=== PATIENT | female | born 1955 | race Caucasian/White ===

== ENCOUNTER 2022-05-21 00:58 | Day surgery (SDC) | payer MEDICARE, SELFPAY ==
[2022-05-13 12:50] VITALS: BMI 42.5
[2022-05-21 10:24] VITALS: BP 129/59; PULSE 83; RESP 18; TEMP 36; O2SAT 98
[2022-05-21] MEDS: LACTATED RINGERS 1,000 ML 150 ML IV CONT (10:27)
--- NOTE | 2022-05-21 10:33 | WPDANESEPPF ---
Anes - Initial Pre Proc Eval Procedure: Operation Date: 05/21/22 12:30 Proposed Procedures p Colonoscopy - Jose G Galaviz MD Date/Time: 05/21/22 10:33 Surgeon: Jose G Galaviz MD Pre Op Diagnosis: other fecal abnormalities Patient Data Age: 67 Gender: F Height: 1.6 m Weight: 114.8 kg Last Vital Signs Temp 96.8 F L 05/21/22 10:24 Pulse 83 05/21/22 10:24 Resp 18 05/21/22 10:24 BP 129/59 L 05/21/22 10:24 Pulse Ox 98 05/21/22 10:24 O2 Del Method Room Air 05/21/22 10:24 Allergies Allergy/AdvReac Type Severity Reaction Status Date / Time codeine Allergy Intermediate Dyspnea / Verified 05/21/22 10:23 SOB Home Medications Medication Instructions Recorded Confirmed Type albuterol sulfate 90 mcg/actuation 1 inh inhalation Q4H PRN shortness 02/04/21 05/21/22 Rx aerosol inhaler (ProAir HFA) of breath or wheezing #6.7 grams triamcinolone acetonide 0.1 % 1 applic topical TID #30 grams 01/23/22 05/21/22 Rx topical cream clonazepam 0.5 mg tablet 0.5 mg PO DAILY PRN anxiety #30 02/04/22 05/21/22 Rx tabs atenolol 50 mg-chlorthalidone 25 1 tablet PO DAILY #30 tabs 04/25/22 05/21/22 Rx mg tablet (Tenoretic) levothyroxine 25 mcg tablet 25 mcg PO DAILY #30 tabs 04/25/22 05/21/22 Rx lisinopril 20 mg tablet 20 mg PO DAILY #30 tabs 04/25/22 05/21/22 Rx rosuvastatin 20 mg tablet (Crestor) 20 mg PO DAILY #30 tabs 04/25/22 05/21/22 Rx Patient hx anesthesia problems: none Family hx anesthesia problems: none Results Review: All pre-operative results and documents have been reviewed as part of the pre-operative evaluation. [facility] Past Medical History Medical History BMI 40.0-44.9, adult BMI 45.0-49.9, adult Family History Family History Father Hypertension Diabetes mellitus Mother Hypertension Rheumatoid arthritis Lung cancer Sibling Diabetes mellitus Hypertension Other Cerebrovascular accident Family history of coronary artery disease Family history of malignant neoplasm Family history of rheumatoid arthritis Social History Social History Smoking packs per day: 1.5 Smoking cigarettes per day: 30.0 Smoking status: Former smoker Tobacco type: cigarettes Second hand tobacco smoke exposure: Yes Smoking end date: 10/10/17 Alcohol intake: never Substance use: never Substance use type: does not use Living arrangements: with family Occupation/Education: retired 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 Informed Consent: The patient's anesthetic plan and its attendant risks and benefits were discussed with the patient/family/POA. Questions were solicited and answers provided to the satisfaction of the patient/family/POA.
--- NOTE | 2022-05-21 11:02 | PM.HPGS ---
History of Present Illness History of Present Illness Consent: Risks, benefits, and alternatives have been discussed and questions answered. Patient agrees to proceed with procedure. Chief complaint: other fecal abnormalities Narrative: Carie Temple is a 67 year old female with positive cologuard, never had colonoscopy Review of Systems Constitutional: Constitutional: Denies headache(s) and Denies weakness Eyes: Eyes: Denies blurry vision ENT: Reports Normal hearing present, Denies headache(s) and Denies neck pain Cardiovascular: Cardiovascular: Denies chest pain and Denies dyspnea Respiratory: Respiratory: Denies dyspnea Gastrointestinal: Gastrointestinal: Reports no additional gastrointestinal complaints Genitourinary: Genitourinary: Denies dysuria Musculoskeletal: Musculoskeletal: Denies neck pain Integumentary/Breasts: Skin/Breast: Denies dry skin Neurologic: Reports Normal hearing present, Denies headache(s) and Denies weakness Psychiatric: Psychiatric: Denies anxiety Endocrine: Endocrine: Denies change in body appearance Hematologic/Lymphatic: Hematologic/Lymphatic: Denies easy bleeding Allergic/Immunologic: Allergic/Immunologic: Denies urticaria PMFSH Past Medical History Medical History BMI 40.0-44.9, adult BMI 45.0-49.9, adult Family History Family History Father Hypertension Diabetes mellitus Mother Hypertension Rheumatoid arthritis Lung cancer Sibling Diabetes mellitus Hypertension Other Cerebrovascular accident Family history of coronary artery disease Family history of malignant neoplasm Family history of rheumatoid arthritis Social History Social History Smoking packs per day: 1.5 Smoking cigarettes per day: 30.0 Smoking status: Former smoker Tobacco type: cigarettes Second hand tobacco smoke exposure: Yes Smoking end date: 10/10/17 Alcohol intake: never Substance use: never Substance use type: does not use Living arrangements: with family Occupation/Education: retired 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 Gender identity (if verbalized by the patient): Female Spiritual care concerns: No Meds Home Medications and Allergies Home Medications Medication Instructions Recorded Confirmed Type albuterol sulfate 90 mcg/actuation 1 inh inhalation Q4H PRN shortness 02/04/21 05/21/22 Rx aerosol inhaler (ProAir HFA) of breath or wheezing #6.7 grams triamcinolone acetonide 0.1 % 1 applic topical TID #30 grams 01/23/22 05/21/22 Rx topical cream clonazepam 0.5 mg tablet 0.5 mg PO DAILY PRN anxiety #30 02/04/22 05/21/22 Rx tabs atenolol 50 mg-chlorthalidone 25 1 tablet PO DAILY #30 tabs 04/25/22 05/21/22 Rx mg tablet (Tenoretic) levothyroxine 25 mcg tablet 25 mcg PO DAILY #30 tabs 04/25/22 05/21/22 Rx lisinopril 20 mg tablet 20 mg PO DAILY #30 tabs 04/25/22 05/21/22 Rx rosuvastatin 20 mg tablet (Crestor) 20 mg PO DAILY #30 tabs 04/25/22 05/21/22 Rx Allergies Allergy/AdvReac Type Severity Reaction Status Date / Time codeine Allergy Intermediate Dyspnea / Verified 05/21/22 10:23 SOB Vital Signs Vital Signs - 24 hr 05/21/22 10:24 Temperature 96.8 F L Pulse Rate 83 Respiratory Rate 18 Blood Pressure 129/59 L Pulse Oximetry 98 Oxygen Delivery Room Air Exam Const: General: comfortable and no acute distress HENMT: Face/Nose/Sinus: Normal nares present Eyes: General: appearance normal, both eyes and all related structures Neck: Neck: no JVD Resp: Auscultation: clear to auscultation bilaterally Cardio: Rate: regular rate Rhythm: regular rhythm GI: Inspection: non-distended GI Palp: Yes Soft to palpation Skin: General skin exam: normal color Neuro: General: gai
[2022-05-21 11:33] VITALS: BP 111/58; PULSE 75; RESP 20; O2SAT 99
[2022-05-21 11:43] VITALS: BP 120/60; PULSE 78; RESP 16; O2SAT 98
[2022-05-21 11:53] VITALS: BP 126/55; PULSE 72; RESP 17; O2SAT 97
== END 2022-05-21 12:28 | disposition home or self-care (01) ==
PROVIDERS: PCP Family Medicine; Visit Provider Internal Medicine Gastroenterology
PROC: 0DJD8ZZ Inspection of Lower Intestinal Tract, Via Natural or Artificial Opening Endoscopic (ICD-10-PCS; CPT 45378; principal; 2022-05-21 12:30)
DX: R19.5 Other fecal abnormalities (principal); K51.40 Inflammatory polyps of colon without complications; K57.30 Diverticulosis of large intestine without perforation or abscess without bleeding; K64.8 Other hemorrhoids; Z79.51 Long term (current) use of inhaled steroids; Z87.891 Personal history of nicotine dependence; E66.01 Morbid (severe) obesity due to excess calories; Z68.41 Body mass index [BMI] 40.0-44.9, adult
CPT/HCPCS: 45385; 88305; J2405; J2704; J7120